=== PATIENT | female | born 1960 | race Caucasian/White ===

== ENCOUNTER 2017-06-19 14:42 | Emergency (ER) | payer OTHER ==
[~2017-06-19] VITALS: Ht 167.6 cm; Wt 54.5 kg
[~2017-06-19 14:42] MED LIST: ALBU18HF INH; ASCO10007 PO; ASPI-628 PO; CLC200SP2; FLUT12AE10 IH; GUAI120013 PO; MAGN250T29 PO; MULT-1018 PO; OMEG1CAP31 PO; P EP PO; PARO40TA47 PO; SOLI10TA PO
--- NOTE | 2017-06-19 14:42 | ED.REPORT ---
HPI-Chest Pain 40 and Over Date of Service Jun 19, 2017 ED Provider: Salazar Liang MD Patient is a 57 year old female with a history of stress- induced cardiomyopathy who presents to the ED via EMS complaining of intermittent mid- sternal chest pain since last night. She reports that she first noticed her heart was racing last night around 2200 and continued to feel that way this morning. Patient denies shortness of breath. The patient describes the pain as a heaviness and rates the pain as a 4/10. En route the patient was given nitro. She states that this feels similar to the last time she had CHF. Nursing Notes Stated Complaint: CHEST PAIN Nursing Notes Reviewed: Yes Allergies: Coded Allergies: Sulfa (Sulfonamide Antibiotics) (Verified Allergy, Unknown, 03/01/16) codeine (Verified Allergy, Unknown, N/V, 07/23/09) meperidine (Verified Allergy, Unknown, HEART SLOWED BADLY, 07/23/09) tramadol (Verified Allergy, Unknown, PASSED OUT, 07/23/09) Uncoded Allergies: OTHER UNKNOWN PAIN RX (Allergy, Unknown, VERY SENSITIVE, 02/14/08) Scheduled Albuterol Sulfate (Ventolin HFA Inhaler) 200 Puff/18 Gm Inhaler 1 PUFF INH Q4- 6H Aspirin (Aspir 81) 81 Mg Tablet.dr 81 MG PO DAILY Calcitonin [place] (Miacalcin) 30 [place]/3.7 Ml Nasalspr 1 SPRAY NA HS [place] in 1 Nostril (Alternating Nostrils) Daily Cetirizine HCl/Pseudoephedrine (Aller-Max D 5-120 mg Tablet) 1 Each Tab.er.12h 1 EACH PO Q12 Dabigatran Etexilate Mesylate (Pradaxa) 150 Mg Capsule 150 MG PO BID Fluticasone Propionate (Flovent HFA 220 mcg) 12 Gm Aer.w.adap 1 PUFF IH BID Guaifenesin (Mucinex) 1,200 Mg Tbmp.12hr 1,200 MG PO Q12 Magnesium Oxide (Magnesium) 250 Mg Tablet 250 MG PO BID Multivitamin (Multi Vitamin Daily) 1 Each Tablet 1 EACH PO DAILY [place]-3 Fatty Acids/Fish Oil (Fish Oil Softgel) 1 Each Capsule 1 EACH PO DAILY Paroxetine (Paxil) 40 Mg Tablet 40 MG PO DAILY Solifenacin Succinate (Vesicare) 10 Mg Tablet 10 MG PO DAILY Miscellaneous Medications Ascorbic Acid (Vitamin C) 1,000 Mg Tablet 1,000 MG PO General Time Seen by MD: 14:42 Chief Complaint Chest pressure Hx Obtained From: Patient Arrived By: Ambulance Sudden in Onset?: Yes Onset Occurred: Yesterday Symptom Duration: Intermittent Location: : Substernal Quality: Heaviness Radiation: : Does not radiate Severity: Current: Mild Similar Sx Previous: Yes Risk Factors )( PE Risk Stratification No risk factors Past Medical History Past Medical History 1. Congestive heart failure, acute, systolic dysfunction due to stress-induced (Takotsubo) cardiomyopathy. Echo (12/22/13): LVEF 25-30% with severe apical hypokinesis. 2. obstructive sleep apnea and restless leg syndrome 3. Anxiety and significant stress. 4. Anemia and thrombocytopenia 5. Congenital pectus excavatum. 6. Overactive bladder. Past Surgical History Reports: Cholecystectomy, Hysterectomy Smoking History Never Smoker Social History Alcohol Use: Denies alcohol use Drug Use: Denies drug use Ambulatory Status Independent Review of Systems Respiratory: Denies: Shortness of breath Cardiovascular: Reports: Chest pain, Palpitations Complete sys rev & neg: except as marked. Physical Exam Initial Vital Signs Vital Signs (First) Date Time Temp Pulse Resp B/P Pulse Ox O2 Delivery O2 Flow Rate FiO2 06/19/17 14:53 36.5 144 22 100/70 98 Room Air General/Constitutional: Awake, Alert Respiratory / Chest: Atraumatic, Breath sounds NL, Breath sounds = bilat, No respiratory distress Cardiovascular: Regular rhythm, Heart sounds NL Heart Rate / Rhythm: Positive: Tachycardia Abdomen: Atraumatic, Soft, Non-tender Lower Extremity / Pelvis / MS: Atraumatic, No edema Skin: Atraumatic, Color NL, No rash, Warm, Dry Neurologic: Oriented X3, Speech NL Head / Eyes: Atraumatic, Normocephalic Interpretation & Diagnostics Lab Results Interpretation Result Diagram: 06/19/17 1420 06/19/17 1420 Test 06/19/17 14:20 White Blood Count 4.8th/mm3 (3.8-10.1) Red Blood Count 4.45mil/mm3 (3.90-5.20) Hemoglobin 13.8g/dL (12.0-15.6) Hematocrit 41.6% (35.0-46.0) Mean Corpuscular Volume 93.5fL (81-100) Mean Corpuscular Hemoglobin 31.0pg (27.0-35.0) Mean Corpuscular Hemoglobin Concent 33.2% (32.0-37.0) Red Cell Distribution Width 13.1% (12.3-15.4) Platelet Count 205bil/L (150-400) Neutrophils (%) (Auto) 61.7% (40-74) Lymphocytes (%) (Auto) 27.6% (14-46) Monocytes (%) (Auto) 9.7% (4-12) Eosinophils (%) (Auto) 0.6% (0-5) Basophils (%) (Auto) 0.4% (0-3) Prothrombin Time 9.9sec (8.1-12.5) Prothromb Time International Ratio 0.93ratio Sodium Level 140mEq/L (134-144) Potassium Level 4.2mEq/L (3.5-5.2) Chloride Level 102mEq/L (97-108) Carbon Dioxide Level 27mmol/L (18-29) Blood Urea Nitrogen 19mg/dL (6-24) Creatinine 0.59mg/dL (0.57-1.00) Estimat Glomerular Filtration Rate 151mL/min (>59) Glucose Level 95mg/dL (60-99) Calcium Level 9.5mg/dL (8.5-10.1) Magnesium Level 2.0mg/dL (1.6-2.6) Total Bilirubin 0.5mg/dL (0.0-1.2) Aspartate Amino Transf (AST/SGOT) 32U/L (0-50) Alanine Aminotransferase (ALT/SGPT) 27U/L (0-32) Alkaline Phosphatase 76U/L (25-150) Troponin T < 0.010ug/L (0.0-0.011) Total Protein 7.3g/dL (6.4-8.4) Albumin 4.6g/dL (3.4-5.0) ECG Interpretation ECG Interpretation: atrial flutter, rate 147 posterior infarct, acute lateral infarct, acute anterioseptal infarct, age undeterminate ST elevation prolonged QT interval Time: 14:45 Interpreted by: ED physician ECG Interpretation: left atrial enlargement RBBB and LPFB Time: 15:10 Interpreted by: ED physician Normal ECG Interpretation: Normal rate (69), Normal sinus rhythm X-Ray Chest Interpretation Chest Xray Interpretation: IMPRESSION: No acute pulmonary process. Dictated by: Alyson Rey M.D. on 06/19/2017 at 15:37 Approved by: Alyson Rey M.D. on 06/19/2017 at 15:37 Interpretation / Wet Read by: Interpret - Radiologist Procedures Electrical Cardioversion Time: 15:06 Procedure Performed by: ED physician Indication: Atrial flutter Consent / Setup / Site Prep: Informed consent provided, Consent from patient , Time-out performed, Placed on pulse oximeter, Place on sex worker or escort, Hand hygiene observed Procedural Sedation/Analgesia: Sedation: Propofol Joules: 100 (120J) Procedure Successful: Yes Post-Procedure Rhythm: Normal sinus rhythm Post-Procedure / Complications: No complications, Condition improved, Tolerated procedure well, Patient stable Proced Mod Sedation/Analgesia Time: 15:04 Procedure Performed by: ED physician Sedation Time: Enter # minutes (9) Consent / Setup: Informed consent provided, Consent from patient, Time-out performed, Hand hygiene observed, Position supine Indication: Other (cardioversion) Preparation: java jsf developer applied, Pulse oximeter applied, Constant attendance, IV access established, Eval last meal time, Supplemental oxygen, Procedure explained, Suction available, End tidal CO2 mon applied VS Prior to Procedure: O2 saturation normal, Blood pressure normal Mallampati: Class & Anatomy: 1 tonsils/uvula/s palate Airway Exam: Normal facial anatomy, Normal neck anatomy, Normal anatomy CVS/Resp Exam: Normal breath sounds Neuro Exam: Alert, Responsive Sedation: Sedation: Propofol ASA Classification: 2 mild systemic disease Response During Procedure: Handled secretions adeq, Maintained airway well, Oxygenation stable, Sedation appropriate, Vital signs stable Complications During/After: None Reversal: None required Mental Status After Procedure: Alert, Oriented X3, Response to verbal stim, Response to painful stim Post-Procedure: Alert prior to discharge Attestation: I performed procedure, I performed sedation Re-Eval/Medical Decision Med Decision/Clinical Course I opted to urgently cardiovert this woman because she was having symptoms of ischemia, namely chest pain. Additionally, I did not believe that her risk of embolism was significant because her symptoms had been present for less than 48 hours. For this reason I did not believe that anticoagulation prior to cardioversion was necessary and it was clearly indicated emergently given the acute symptoms described. I believe she is low risk for embolic stroke with cardioversion. Time of Eval: 14:59 Re-Evaluation/Progress Note: Discussed plan for cardioversion after 6mg of adenosine revealed underlying atrial flutter. Patient understands and agrees to procedure. All questions were addressed. Time of Eval: 15:13 Re-Evaluation/Progress Note: Patient reports that her chest pain has improved. Time of Eval: 16:19 Patient Status: Condition improved Re-Evaluation/Progress Note: Discussed labs, repeat EKG and chest x-ray results. Patient's continues to be in sinus rhythm. Time of Eval: 16:41 Re-Evaluation/Progress Note: Discussed plan for discharge. Patient understands and agrees to plan. All questions were addressed. Consultation : Referral / Consult Name: Rustam Molina MD Consulted With: Cardiology Call Returned at: 16:23 Lead Developer: Agrees with eval, Agrees with plan Note: Consult with Dr. Molina, who recommends anticoagulation and discharge. Counseled Regarding: Diagnosis, Lab results, Need for follow-up, When/why to return to ED Discharge & Departure Primary Impression: Atrial flutter Atrial flutter type: unspecified Qualified Code: I48.92 - Unspecified atrial flutter Disposition: Home Discharge Condition All VS Reviewed: Yes Condition: Stable Patient Instructions: Atrial Flutter (ED) Additional Instructions: Your heart was in atrial flutter (your heart was beating irregularly and fast). In the ED, we cardioverted you back into a regular sinus rhythm. Your labs, EKG after cardioversion and chest X-ray were all normal and reassuring. Take the anticoagulation medication as prescribed. Follow up with the referred tomato paste maker and your primary care physician next week. Return to the emergency department if you develop any new or concerning symptoms including chest pain, shortness of breath, your heart is beating too fast or worsening symptoms. Referrals: Chiquita Hillman (PCP) Rustam Molina MD Crit Care Except Billable Proc Time Spent: 30-74 minutes Services Performed: Patient management by me, Time spent at bedside, Reviewing test results, Reviewing imaging, Discussing patient care, Documentation in record Scribe Attestation Portions of this note were transcribed by Sepideh Tejeda. I, Dr. Freitas personally performed the history, physical exam and medical decision-making; I reviewed and confirmed the accuracy of the information in the transcribed note. Signed by: Dexter Dumont, 06/19/17 copies to: Chiquita Hillman; Rustam Molina MD, Kirk H MD Jun 19, 2017 14:42 Winter Tejeda Jun 19, 2017 14:53
[2017-06-19] MEDS ORDERED: Adenosine 3 mg/mL 2 mL Inj ONE (14:47)
[2017-06-19 14:52] LABS: BASOPHILS % (AUTO) 0.4 % (0-3); EOSINOPHILS % (AUTO) 0.6 % (0-5); MONOCYTES % (AUTO) 9.7 % (4-12); Mean Corpuscular Volume 93.5 fL (81-100); NEUTROPHILS % (AUTO) 61.7 % (40-74); Platelet Count 205 bil/L (150-400)
[2017-06-19 14:53] VITALS: BP 100/70; PULSE 144; RESP 22; O2SAT 98
[2017-06-19] MEDS ORDERED: Propofol 10 mg/mL 20 mL Inj ONE (14:55)
[2017-06-19 15:00] VITALS: BP 100/70; RESP 20; O2SAT 98
[2017-06-19] MEDS ORDERED: Propofol 10 mg/mL 20 mL Inj IVPUSH ONE (15:10)
[2017-06-19 15:11] LABS: INR 0.93 ratio
[2017-06-19 15:15] VITALS: BP 103/57; PULSE 69; RESP 18; O2SAT 96
[2017-06-19 15:19] LABS: TROPONIN T < 0.010 ug/L (0.0-0.011)
--- NOTE | 2017-06-19 15:39 | DRSVH ---
PROCEDURE: X-RAY CHEST ONE VIEW, PORTABLE ([id number]) INDICATIONS: Chest Pain TECHNIQUE: One view of the chest was acquired. COMPARISON: [facility], , CHEST 1VW (PORTABLE), 12/22/2013, 13:28. FINDINGS: Surgical changes and devices: None. Lungs and pleura: No pleural effusions or pneumothorax. Lungs are clear. Mediastinum: Mediastinal contours appear normal. Heart size is normal. Bones and chest wall: No suspicious bony lesions. Overlying soft tissues appear unremarkable. IMPRESSION: No acute pulmonary process. Dictated by: Alyson Rey M.D. on 06/19/2017 at 15:37 Approved by: Alyson Rey M.D. on 06/19/2017 at 15:37
[2017-06-19 16:00] VITALS: BP 96/63; PULSE 67; RESP 15; O2SAT 98
[2017-06-19] MEDS ORDERED: RIVA20TA PO (16:49)
[2017-06-19] MEDS ORDERED: DABI150C PO (17:09)
[2017-06-19] MEDS ORDERED: Dabigatran 150 mg Capsule PO ONE (17:10)
[2017-06-19 17:42] VITALS: BP 101/73; PULSE 65; RESP 16; O2SAT 98
--- NOTE | 2017-06-19 18:35 | NUR ---
Late entry. Assisted with Cardioversion. No respiratory issues noted.
== END 2017-06-19 17:42 | disposition home or self-care (01) ==
LOC: SED 14:42
DX: I48.92 Unspecified atrial flutter (principal); I50.9 Heart failure, unspecified; Z86.79 Personal history of other diseases of the circulatory system; Z90.49 Acquired absence of other specified parts of digestive tract; Z79.01 Long term (current) use of anticoagulants; Z79.82 Long term (current) use of aspirin; Z79.51 Long term (current) use of inhaled steroids; Z88.2 Allergy status to sulfonamides; Z88.6 Allergy status to analgesic agent; Z88.8 Allergy status to other drugs, medicaments and biological substances
CPT/HCPCS: 36415; 71010; 80053; 83735; 84484; 85025; 85610; 92960; 93005; 94799; 96374; 99156; 99291; J0153; J2704